=== PATIENT | female | born 1965 | race Caucasian/White ===

== ENCOUNTER 2017-01-07 13:40 | Emergency (ER) | payer SELFPAY ==
[~2017-01-07] VITALS: Ht 167.6 cm; Wt 81.8 kg
[2017-01-07 13:57] VITALS: BP 120/74; PULSE 66; RESP 18; O2SAT 99
--- NOTE | 2017-01-07 14:48 | ED.REPORT ---
HPI-Extremity Problem Lower Date of Service Jan 07, 2017 ED Provider: Jay Jay Schrader DO Mrs. Guzman is a 51-year-old female who presents to the ED with a nonhealing spider bite on the lateral aspect of her right ankle. Patient believes she might have had a spider bite over a year ago. She was placed on antibiotics for one-week 6-8 months ago. Patient noted that about a week ago the lesion has become very red. She has been placing honey on the lesion in keeping the area covered with gauze and tape. She notes that the lesion is very itchy. Denies purulent drainage from the area. She denies fevers or chills. Since she has been placing the honey on the area she noted that the lesion has been getting smaller but never has fully resolved. Nursing Notes Stated Complaint: INSECT BITE Chief Complaint: Skin Rash/Abscess Allergies: Coded Allergies: No Known Allergies (Unverified , 01/07/17) Scheduled Cephalexin (Keflex) 500 Mg Capsule 500 MG PO QID Clotrimazole (Itch Relief) 1 % Cream..g. 15 GM TP DAILY General Time Seen by MD: 14:40 Chief Complaint Other Rash on the lateral aspects of her right ankle Hx Obtained From: Patient Onset Occurred: More than a week ago... (>6 months) Symptom Duration: Constant Severity: Current: No pain currently Pertinent Negative: Pt denies other symptoms Past Medical History Past Medical History PE Past Surgical History Neck vertebral fusion Smoking History Never Smoker Social History Alcohol Use: Denies alcohol use Ambulatory Status Independent Review of Systems Basic Review of Systems Eyes: Vision NL, No discharge ENT: Hearing NL, No pain, No nasal congestion, No pharyngeal pain Respiratory: No shortness of breath, No cough, No wheeze Cardiovascular: No chest pain, No dyspnea on exertion, No orthopnea, No parox noct dyspnea, No palpitations GI: No abdominal pain, No anorexia, No nausea, No vomiting : No dysuria, No frequency Hematologic: No bleeding, No bruising Endocrine: No cold intolerance, No heat intolerance, No weight gain, No weight loss Allergy / Immune: No allergy Psychiatric: Normal thought content Physical Exam Initial Vital Signs Vital Signs (First) Date Time Temp Pulse Resp B/P Pulse Ox O2 Delivery O2 Flow Rate FiO2 01/07/17 13:57 36.4 66 18 120/74 99 01/07/17 16:28 Room Air General/Constitutional: Well-developed, Well-nourished Respiratory: Breath sounds normal, Clear to auscultation, No respiratory distress Cardiovascular: Regular rate & rhythm, Heart sounds normal, Intact distal pulses Color / Condition: Positive: Erythema localized Rash / Lesion Notes: Erythematous patch with satellite lesions 3 in x 2 in okay did on the lateral aspect of her ankle, above her lateral malleolus. Erythema is beefy red in color. No discharge from the lesion. No pain with palpation of the surrounding area. Re-Eval/Medical Decision Med Decision/Clinical Course Mrs. Guzman is a 51-year-old female who presents with cellulitis of her lower extremity started a week ago. She denies any fevers or chills. Lesion is decreasing in size and the erythema is lightening in color. Due to the satellite lesions around her erythema will also prescribe an antifungal ointment. Lesion has not healed for over a year. May be suggestive of a cancerous process. Refer to dermatology for biopsy. Discharge & Departure Impression: Primary Impression: Cellulitis Site of cellulitis: extremity Site of cellulitis of extremity: lower extremity Laterality: right Qualified Code: L03.115 - Cellulitis of right lower limb Disposition: Home Patient Instructions: Cellulitis (ED) Additional Instructions: We are prescribing you an antibiotic by mouth today called Keflex and a antifungal ointment. Take the antibiotics 4 times a day for 7 days. Apply a small dab of antifungal ointment on the lesion daily as needed for itching. We also recommend that you go see a medical director to get the lesion biopsied due to the fact that the lesion has not healed and so long. Referrals: NOPCP (PCP) Attending Statement The patient was seen and examined together with Dr. Reed on 01/07/17 and I have added additional information to the note above. Jay Jay Schrader DO Jan 07, 2017 14:48 Jamia Reed DO Jan 07, 2017 15:26
[2017-01-07] MEDS ORDERED: CEPH-512 PO (15:59)
[2017-01-07] MEDS ORDERED: CLOT15CR66 TP (16:03)
[2017-01-07 16:28] VITALS: PULSE 65; RESP 16; O2SAT 99
== END 2017-01-07 16:26 | disposition home or self-care (01) ==
LOC: SED 13:40
DX: L03.115 Cellulitis of right lower limb (principal); W57.XXXA Bitten or stung by nonvenomous insect and other nonvenomous arthropods, initial encounter; Y93.89 Activity, other specified; Y92.89 Other specified places as the place of occurrence of the external cause; Y99.8 Other external cause status